=== PATIENT | female | born 1965 | race African-American/Black ===

== ENCOUNTER 2024-07-19 16:15 | Emergency (ER) | payer OTHER, SELFPAY ==
[2024-07-19 16:18] VITALS: BP 153/77; PULSE 82; RESP 18; TEMP 35.5; O2SAT 99; BMI 34.2
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
--- NOTE | 2024-07-19 16:54 | CT_ITS ---
EXAM: CT CHEST AND THORACIC SPINE WITHOUT INTRAVENOUS CONTRAST CLINICAL INDICATION: right posterior rib pain TECHNIQUE: Helically acquired images were obtained of the chest and thoracic spine without intravenous contrast. This CT exam was performed using one or more of the following dose reduction techniques: automated exposure control, adjustment of the mA and/or kV according to patient size, and/or use of iterative reconstruction technique. COMPARISON: CT cervical spine on the same date. FINDINGS: LUNGS AND PLEURAL SPACES: Minimal dependent basilar atelectasis. Otherwise, no significant pulmonary parenchymal abnormality. No mass. No pleural effusion or thickening. No pneumothorax. HEART: No significant abnormality. Heart size is normal. No pericardial effusion. No significant coronary artery calcifications. MEDIASTINUM: No significant abnormality. No mediastinal or hilar adenopathy. Esophagus is unremarkable. No hiatal hernia. THYROID: No significant abnormality. No thyroid lesions. BONES/JOINTS: No suspicious lytic or blastic abnormality. VASCULATURE: No significant abnormality. Thoracic aorta is non-dilated. VERTEBRAE: Vertebra are normal in height and alignment. No evidence of acute fracture or traumatic subluxation. No spondylolisthesis. Ossicles associated with the spinous process tips of T3, T5, T7, and T8 are chronic appearing and almost certainly due to chronic posttraumatic and/or degenerative change. No definite acute spinal fracture. Multilevel facet arthrosis and mild endplate osteophytosis throughout the thoracic spine. DISCS/SPINAL CANAL/NEURAL FORAMINA: Multilevel intervertebral disc height loss. No critical stenosis. LYMPH NODES: No significant abnormality. No enlarged lymph nodes. LIVER: Low-attenuation lesion within the right hepatic lobe measures up to 3 cm with ill-defined margins. This is a fully characterize. CT/Spine Thoracic without Contras IMPRESSION: 1. Ossicles associated with the spinous process tips of T3, T5, T7, and T8 are chronic appearing and almost certainly due to chronic posttraumatic and/or degenerative change. No definite acute spinal fracture. Degenerative changes. 2. Low-attenuation lesion within the right hepatic lobe measures up to 3 cm with ill-defined margins. This is a fully characterize. Recommend hepatic MR. 3. No evidence of rib fracture or other acute osseous abnormality. No additional acute pathology in the chest. Electronically Signed: Russell Lazaro DO at 18:26 EDT ,
--- NOTE | 2024-07-19 16:54 | CT_ITS ---
EXAM: CT CHEST AND THORACIC SPINE WITHOUT INTRAVENOUS CONTRAST CLINICAL INDICATION: right posterior rib pain TECHNIQUE: Helically acquired images were obtained of the chest and thoracic spine without intravenous contrast. This CT exam was performed using one or more of the following dose reduction techniques: automated exposure control, adjustment of the mA and/or kV according to patient size, and/or use of iterative reconstruction technique. COMPARISON: CT cervical spine on the same date. FINDINGS: LUNGS AND PLEURAL SPACES: Minimal dependent basilar atelectasis. Otherwise, no significant pulmonary parenchymal abnormality. No mass. No pleural effusion or thickening. No pneumothorax. HEART: No significant abnormality. Heart size is normal. No pericardial effusion. No significant coronary artery calcifications. MEDIASTINUM: No significant abnormality. No mediastinal or hilar adenopathy. Esophagus is unremarkable. No hiatal hernia. THYROID: No significant abnormality. No thyroid lesions. BONES/JOINTS: No suspicious lytic or blastic abnormality. VASCULATURE: No significant abnormality. Thoracic aorta is non-dilated. VERTEBRAE: Vertebra are normal in height and alignment. No evidence of acute fracture or traumatic subluxation. No spondylolisthesis. Ossicles associated with the spinous process tips of T3, T5, T7, and T8 are chronic appearing and almost certainly due to chronic posttraumatic and/or degenerative change. No definite acute spinal fracture. Multilevel facet arthrosis and mild endplate osteophytosis throughout the thoracic spine. DISCS/SPINAL CANAL/NEURAL FORAMINA: Multilevel intervertebral disc height loss. No critical stenosis. LYMPH NODES: No significant abnormality. No enlarged lymph nodes. LIVER: Low-attenuation lesion within the right hepatic lobe measures up to 3 cm with ill-defined margins. This is a fully characterize. CT/Chest without Contrast IMPRESSION: 1. Ossicles associated with the spinous process tips of T3, T5, T7, and T8 are chronic appearing and almost certainly due to chronic posttraumatic and/or degenerative change. No definite acute spinal fracture. Degenerative changes. 2. Low-attenuation lesion within the right hepatic lobe measures up to 3 cm with ill-defined margins. This is a fully characterize. Recommend hepatic MR. 3. No evidence of rib fracture or other acute osseous abnormality. No additional acute pathology in the chest. Electronically Signed: Russell Lazaro DO at 18:26 EDT ,
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
--- NOTE | 2024-07-19 16:54 | CT_ITS ---
EXAM: CT HEAD AND CERVICAL SPINE WITHOUT INTRAVENOUS CONTRAST CLINICAL INDICATION: head trauma, pain. TECHNIQUE: Helically acquired images were obtained of the head/brain and cervical spine without intravenous contrast. 2D reformatted images were reviewed. This CT exam was performed using one or more of the following dose reduction techniques: automated exposure control, adjustment of the mA and/or kV according to patient size, and/or use of iterative reconstruction technique. COMPARISON: CT chest and thoracic spine on the same date. FINDINGS: BRAIN AND EXTRA-AXIAL SPACES: Focal hyperdensity in the frontal interhemispheric fissure measuring approximately 7 mm likely along the leading free edge of the interhemispheric falx is nonspecific. No additional evidence of intracranial hemorrhage. No intracranial mass or mass effect is otherwise identified. No evidence of acute territorial infarct. Gonzalez-white matter differentiation is maintained. No mass effect or shift of midline structures. No hydrocephalus. Patent basal cisterns. Posterior fossa structures are unremarkable. SKULL: No significant abnormality. No discrete lytic or blastic abnormalities. SINUSES: No significant findings. MASTOID AIR CELLS: No significant abnormality. Clear. SELLA: Partially sella turcica is nonspecific. AUDITORY SYSTEM: Well-corticated ossicle near the spinous process of C7 likely secondary to degenerative change or perhaps remote injury. VERTEBRAE: Reversal of expected cervical lordosis. Multilevel facet, uncovertebral joint, and endplate osteophytosis. No fracture. No traumatic subluxation. No discrete lytic or blastic abnormality. Normal craniocervical junction and cervicothoracic junction. DISCS/SPINAL CANAL/NEURAL FORAMINA: Mild to moderate multilevel spinal canal stenosis. Multilevel intervertebral disc height loss. Mild to moderate multilevel neural foraminal narrowing. Disc herniations and/or disc bulges are present at multiple levels, most conspicuous at C4-C5. SOFT TISSUES: No significant abnormality. No prevertebral soft tissue swelling. LYMPH NODES: No significant abnormality. No cervical adenopathy. OROPHARYNX: Tonsillar calcifications are likely the result of chronic and/or recurrent tonsillar infection/inflammation. SUBMANDIBULAR/PAROTID GLANDS: Possible right submandibular duct stone measuring approximately 7 mm. LUNG APICES: Normal as visualized. Clear. CT/Spine Cervical without Contras IMPRESSION: 1. Focal hyperdensity in the frontal interhemispheric fissure measuring approximately 7 mm likely along the leading free edge of the interhemispheric falx is nonspecific. Consider a small focus of subarachnoid hemorrhage, anterior cerebral artery aneurysm, or small hyperdense meningioma less likely. Consider short interval follow-up or MRI. 2. Degenerative changes in the cervical spine. No evidence of acute osseous findings. 3. Possible right submandibular duct stone measuring approximately 7 mm. Electronically Signed: Russell Lazaro DO at 18:14 EDT ,
[2024-07-19 18:16] VITALS: BP 159/75; PULSE 78; RESP 18; O2SAT 98
--- NOTE | 2024-07-19 18:22 | EKG12_ITS ---
Test Reason : DYSRHYTHMIA Blood Pressure : / mmHG Vent. Rate : 075 BPM Atrial Rate : 075 BPM P-R Int : 158 ms QRS Dur : 078 ms QT Int : 382 ms P-R-T Axes : 053 052 052 degrees QTc Int : 426 ms Normal sinus rhythm Normal ECG Confirmed by Javier Vance ([id number]), communications editor LOGAN MARRUFO ([id number]) on 07/21/2024 10:52:12 AM Referred By: Confirmed By:Javier Vance
--- NOTE | 2024-07-19 18:25 | NURSING ---
NO OLD EKGS
[2024-07-19 18:41] LABS: Hematocrit 38.3 % (37-47); Hemoglobin 12.7 g/dL (12.0-15.0); Mean Corp Hgb Conc 33.2 g/dL (32-36); Mean Corpuscular Hgb 29.5 pg (27.0-32.0); Mean Corpuscular Volume 88.9 fL (81-99); Mean Platelet Vol. 10.9 fl (6.2-12.0); Platelet Count 231 K/mm3 (150-450); RBC Distribution Width CV 11.9 % (11.6-14.6); RBC Distribution Width SD 38.7 fl (35.1-43.9); Red Blood Count 4.31 M/mm3 (4.2-5.4); White Blood Count 7.7 K/mm3 (4.4-11.0)
[2024-07-19] MEDS: Labetalol (Prefilled) 20 MG/4 ML IV (18:51)
[2024-07-19 18:55] LABS: International Normalized Ratio 1.2; Partial Thromboplast Time 28.5 Seconds (24.1-36.2); Prothrombin Time (Protime)PT. 14.9 SECONDS (11.7-14.9)
[2024-07-19 18:59] LABS: Anion Gap 8 (5-15); BUN 16 mg/dL (7-18); BUN/Creat Ratio 22.7 RATIO (10-20); Calcium,Total 10.7 mg/dL (8.5-10.1); Chloride 108 mmol/L (98-107); Creatinine, Serum 0.71 mg/dL (0.55-1.02); EST Glomerular Filtration Rate 91 mL/min (>60); Est Glom Filt Rate - Afr Amer 110 mL/min (>60); Estimated Creatinine Clearance 102.19 ml/min; Glucose 107 mg/dL (74-106); Potassium 3.4 mmol/L (3.5-5.1); Sodium Level 143 mmol/L (136-145)
[2024-07-19] MEDS: levETIRAcetam IV 1,000 MG/100 ML BAG 400 MG IV (19:27)
[2024-07-19 19:29] VITALS: BP 110/79; PULSE 71; RESP 16; TEMP 37.2; O2SAT 97
[2024-07-19 20:00] VITALS: BP 153/80; PULSE 69; RESP 16; O2SAT 100
[2024-07-19] MEDS: Labetalol (Prefilled) 20 MG/4 ML 10 MG IV (20:11)
== END 2024-07-19 20:28 | disposition short-term general hospital (02) ==
PROVIDERS: Emergency Provider Emergency Medicine; Visit Provider Emergency Medicine
DX: I60.9 Nontraumatic subarachnoid hemorrhage, unspecified (principal); M25.512 Pain in left shoulder; E87.6 Hypokalemia; M54.9 Dorsalgia, unspecified; V89.2XXA Person injured in unspecified motor-vehicle accident, traffic, initial encounter
CPT/HCPCS: 70450; 71250; 72125; 72128; 80048; 85027; 85610; 85730; 93005; 96374; 96376; 99284; J7050; A4216